=== PATIENT | male | born 1950 | race Caucasian/White ===

== ENCOUNTER 2016-06-25 10:46 | Emergency (ER) | payer BC, MEDICARE ==
[2016-06-25 13:13] VITALS: BP 121/67
--- NOTE | 2016-06-25 14:09 | UC ---
FLU HPI - HPI Summary HPI Summary: Pt presents with c/o of fatigue, cough, generalized malaise, chills and intermittent fever X 1 week. pt did not get flu vaccine this year. - History of Current Complaint Chief Complaint: UCRespiratory Stated Complaint: CONGESTION,SORE THROAT,COUGH Time Seen by Provider: 06/25/16 13:09 Hx Obtained From: Patient Onset/Duration: Gradual Onset, Lasting Days - 7 Severity Currently: Mild Severity Initially: Mild Related Hx: Possible Flu/Infectious Exposure - Allergy/Home Medications Allergies/Adverse Reactions: Allergies Allergy/AdvReac Type Severity Reaction Status Date / Time Azithromycin Allergy Mild cramping, Verified 06/25/16 13:13 rectal bleeding PMH/Surg Hx/FS Hx/Imm Hx Previously Healthy: Yes Endocrine History Of: Denies: Diabetes, Thyroid Disease Cardiovascular History Of: Reports: Cardiac Disorders - enlarged heart chamber Denies: Hypertension Respiratory History Of: Reports: COPD, Asthma GI/ History Of: Denies: Ulcer - Surgical History Surgical History: None - Family History Known Family History: Positive: Other - positive [facility] for URI - Social History Occupation: Retired Alcohol Use: None Substance Use Type: None Smoking Status (MU): Former Smoker Amount Used/How Often: 1 ppd Length of Time of Smoking/Using Tobacco: ~ 40 years When Did the Patient Quit Smoking/Using Tobacco: 2008 - Immunization History Most Recent Tetanus Shot: unknown Review of Systems Constitutional: Fever, Chills, Fatigue Skin: Negative Eyes: Negative ENT: Other - nasal congestion Respiratory: Cough Cardiovascular: Negative Gastrointestinal: Negative Genitourinary: Negative Motor: Negative Neurovascular: Negative Musculoskeletal: Myalgia Neurological: Negative Psychological: Negative All Other Systems Reviewed And Are Negative: Yes Physical Exam Triage Information Reviewed: Yes Appearance: Ill-Appearing Vital Signs: Initial Vital Signs Temp 98.8 F 06/25/16 13:04 Pulse 68 06/25/16 13:04 Resp 18 06/25/16 13:04 BP 121/67 06/25/16 13:04 Pulse Ox 99 06/25/16 13:04 Vital Signs Reviewed: Yes ENT Exam: Other ENT: Positive: Nasal congestion Neck exam: Normal Respiratory Exam: Normal Cardiovascular Exam: Normal Musculoskeletal Exam: Normal Neurological Exam: Normal Psychological Exam: Normal Skin Exam: Normal Flu Course/Dx - Differential Dx/Diagnosis Differential Diagnosis/HQI/PQRI: Influenza, Upper Respiratory Infection Provider Diagnoses: Influenza B Discharge - Discharge Plan Condition: Stable Disposition: HOME Prescriptions: Benzonatate CAP* [Tessalon 100 MG CAP*] 100 mg PO TID #15 cap Guaifenesin-Codeine [Codeine/Guaifenesin 100-10 mg/5Ml] 5 ml PO BEDTIME PRN #30 ml MDD 5 PRN Reason: Cough Guaifenesin-Codeine [Cheratussin AC 100-10 mg/5Ml] 5 ml PO QPM PRN #1 bottle MDD 5 PRN Reason: Cough Patient Education Materials: Influenza (ED) Referrals: Dashawn Rangel DO [Primary Care Provider] - Additional Instructions: You have tested positive for Influenza B. Please follow up with your PCP or return to clinic as needed.
== END 2016-06-25 14:19 | disposition home or self-care (01) ==
LOC: UCCORT 10:46
DX: J11.1 Influenza due to unidentified influenza virus with other respiratory manifestations (principal); Z88.1 Allergy status to other antibiotic agents; Z87.891 Personal history of nicotine dependence
CPT/HCPCS: 81003; 87502; 99212; G0463

== ENCOUNTER 2016-06-27 21:16 | Emergency (ER) | payer BC, MEDICARE ==
[2016-06-27 22:09] VITALS: BP 131/71
[2016-06-27] MEDS ORDERED: Albuterol 2.5 MG/3 ML NEB.SOL* (0.083%) INH ONE (22:26)
[2016-06-27] MEDS ORDERED: Levalbuterol 0.63MG/3ML NEB INH ONE (22:31)
--- NOTE | 2016-06-27 22:31 | UC ---
Respiratory Complaint HPI - HPI Summary HPI Summary: dx with the flu 2 days ago. Cough is still not well controlled, keeping him up at night. - History of Current Complaint Chief Complaint: UCRespiratory Stated Complaint: RECHECK COUGH/FLU Time Seen by Provider: 06/27/16 22:18 Hx Obtained From: Patient Onset/Duration: Sudden Onset, Lasting Days Timing: Constant Severity Initially: Moderate Severity Currently: Moderate Character: Cough: Nonproductive Aggravating Factors: Exertion, Deep Breaths, Recumbent Position Alleviating Factors: Nothing Associated Signs And Symptoms: Positive: Dyspnea, Wheezing - Allergies/Home Medications Allergies/Adverse Reactions: Allergies Allergy/AdvReac Type Severity Reaction Status Date / Time Azithromycin Allergy Mild cramping, Verified 06/27/16 22:03 rectal bleeding Home Medications: Home Medications Loratadine & Pseudoephedrine [Claritin-D 12 Hour 5-120 mg] 1 tab PRN 06/27/16 [ History] PMH/Surg Hx/FS Hx/Imm Hx Previously Healthy: Yes Endocrine History Of: Denies: Diabetes, Thyroid Disease Cardiovascular History Of: Reports: Cardiac Disorders - enlarged heart chamber Denies: Hypertension Respiratory History Of: Reports: COPD, Asthma GI/ History Of: Denies: Ulcer - Surgical History Surgical History: None - Family History Known Family History: Positive: Hypertension, Other - positive [facility] for URI - Social History Alcohol Use: None Substance Use Type: None Smoking Status (MU): Former Smoker Amount Used/How Often: 1 ppd Length of Time of Smoking/Using Tobacco: ~ 40 years When Did the Patient Quit Smoking/Using Tobacco: 2008 - Immunization History Most Recent Influenza Vaccination: NEVER-allergy Most Recent Tetanus Shot: unknown Most Recent Pneumonia Vaccination: N/A Review of Systems Constitutional: Negative, Fatigue Skin: Negative Eyes: Negative ENT: Negative Respiratory: Shortness Of Breath, Cough Cardiovascular: Negative Gastrointestinal: Negative Genitourinary: Negative Motor: Negative Neurovascular: Negative Musculoskeletal: Negative Neurological: Negative Psychological: Negative All Other Systems Reviewed And Are Negative: Yes Physical Exam Triage Information Reviewed: Yes Appearance: Well-Nourished, Ill-Appearing, Pain Distress Vital Signs: Initial Vital Signs Temp 96.6 F 06/27/16 22:05 Pulse 52 06/27/16 22:05 Resp 18 06/27/16 22:05 BP 131/71 06/27/16 22:05 Pulse Ox 98 06/27/16 22:05 Vital Signs Reviewed: Yes Eye Exam: Normal Eyes: Positive: Conjunctiva Clear ENT Exam: Normal ENT: Positive: Normal ENT inspection, Hearing grossly normal, Pharyngeal erythema, TM bulging Dental Exam: Normal Neck exam: Normal Neck: Positive: Supple, Nontender, No Lymphadenopathy Respiratory Exam: Normal Respiratory: Positive: Chest non-tender, Respiratory distress - mild, Rhonchi, Wheezing, Inspiration Cardiovascular Exam: Normal Cardiovascular: Positive: RRR, No Murmur, Pulses Normal Abdominal Exam: Normal Abdomen Description: Positive: Nontender, No Organomegaly, Soft Bowel Sounds: Positive: Present Musculoskeletal Exam: Normal Musculoskeletal: Positive: Strength Intact, ROM Intact, No Edema Neurological Exam: Normal Neurological: Positive: Alert, Muscle Tone Normal Psychological Exam: Normal Skin: Positive: Other - clammy UC Diagnostic Evaluation - Laboratory O2 Sat by Pulse Oximetry: 98 Respiratory Course/Dx - Course Course Of Treatment: hx obtained, exam performed, meds reviewed, levalbuterol given with good results, prednisone prescribed. - Differential Dx/Diagnosis Differential Diagnosis/HQI/PQRI: Aspiration, Asthma, Bronchitis, Influenza, Laryngitis, Sinusitis Provider Diagnoses: influenza. cough. wheezing Discharge - Discharge Plan Condition: Stable Disposition: HOME Prescriptions: predniSONE TAB* [Deltasone TAB*] 40 mg PO DAILY #14 tab Patient Education Materials: Bronchospasm (ED) Referrals: Dashawn Rangel DO [Primary Care Provider] -
== END 2016-06-27 23:02 | disposition home or self-care (01) ==
LOC: UCCORT 21:16
DX: J11.1 Influenza due to unidentified influenza virus with other respiratory manifestations (principal); R05 Cough; R06.2 Wheezing; Z88.1 Allergy status to other antibiotic agents; Z87.891 Personal history of nicotine dependence
CPT/HCPCS: 99212; A9270-GY; G0463

== ENCOUNTER 2018-06-16 12:09 | Emergency (ER) | payer MEDICARE, BC ==
[2018-06-16 13:52] VITALS: BP 155/75
--- NOTE | 2018-06-16 14:08 | UC ---
Respiratory Complaint HPI - HPI Summary HPI Summary: Pt presents with c/o cough, nasal congestion X 3 days. Pt denies fever or chills. Pt states that he "gets this every year at the same tie". Is concerned that he has a sinus infection. - History of Current Complaint Chief Complaint: UCGeneralIllness Stated Complaint: SINUS COMPLAINT,COUGH Time Seen by Provider: 06/16/18 13:38 Hx Obtained From: Patient Onset/Duration: Gradual Onset, Lasting Days, Still Present Timing: Intermittent Episodes Severity Initially: Mild Severity Currently: Moderate - at night Pain Intensity: 0 Character: Cough: Nonproductive Aggravating Factors: Allergens, Deep Breaths, Recumbent Position Alleviating Factors: Nothing Associated Signs And Symptoms: Positive: Wheezing, URI, Nasal Congestion Related History: Seasonal Allergies - Risk Factors Pulmonary Embolism Risk Factors: Negative Cardiac Risk Factors: Hypertension, CAD Pseudomonas Risk Factors: Chronic Lung Disease Tuberculosis Risk Factors: Negative - Allergies/Home Medications Allergies/Adverse Reactions: Allergies Allergy/AdvReac Type Severity Reaction Status Date / Time azithromycin Allergy GI Upset Verified 06/16/18 13:48 Home Medications: Home Medications Aspirin 81 mg PO DAILY 06/16/18 [History Confirmed 06/16/18] Guaifen/Phenyleph/Acetaminophn [Sinus Relief Sev Congest Cplt] 1 each PO ONCE [History Confirmed 06/16/18] PMH/Surg Hx/FS Hx/Imm Hx Previously Healthy: Yes Cardiovascular History: Cardiac Disease, Hypertension Respiratory History: COPD - Surgical History Surgical History: Yes Surgery Procedure, Year, and Place: TONSILLECTOMY - Family History Known Family History: Positive: Hypertension, Other - positive FM for URI - Social History Occupation: Retired Lives: With Family Alcohol Use: None Substance Use Type: None Smoking Status (MU): Former Smoker Amount Used/How Often: 1 ppd Length of Time of Smoking/Using Tobacco: ~ 40 years Have You Smoked in the Last Year: No When Did the Patient Quit Smoking/Using Tobacco: 2008 - Immunization History Most Recent Influenza Vaccination: NEVER-allergy Most Recent Tetanus Shot: unknown Most Recent Pneumonia Vaccination: N/A Vaccination Up to Date: Yes Review of Systems All Other Systems Reviewed And Are Negative: Yes Constitutional: Positive: Negative Skin: Positive: Negative Eyes: Positive: Negative ENT: Positive: Sinus Congestion Respiratory: Positive: Cough Cardiovascular: Positive: Negative Gastrointestinal: Positive: Negative Genitourinary: Positive: Negative Motor: Positive: Negative Neurovascular: Positive: Negative Musculoskeletal: Positive: Negative Neurological: Positive: Negative Psychological: Positive: Negative Is Patient Immunocompromised?: No Physical Exam Triage Information Reviewed: Yes Appearance: Well-Appearing Vital Signs: Initial Vital Signs Temp 98.0 F 06/16/18 13:46 Pulse 55 06/16/18 13:46 Resp 15 06/16/18 13:46 BP 155/75 06/16/18 13:46 Pulse Ox 98 06/16/18 13:46 Vital Signs Reviewed: Yes Eye Exam: Normal ENT: Positive: Nasal congestion, Other - white boggy nasal mucosa Dental Exam: Normal Neck exam: Normal Respiratory Exam: Normal Respiratory: Positive: Normal breath sounds Cardiovascular Exam: Normal Musculoskeletal Exam: Normal Neurological Exam: Normal Psychological Exam: Normal Skin Exam: Normal Respiratory Course/Dx - Differential Dx/Diagnosis Differential Diagnosis/HQI/PQRI: Asthma, Bronchitis, Exacerbation Of COPD Provider Diagnosis: Allergic rhinitis, Reactive airway disease Discharge - Sign-Out/Discharge Documenting (check all that apply): Patient Departure All imaging exams completed and their final reports reviewed: No Studies - Discharge Plan Condition: Stable Disposition: HOME Prescriptions: Benzonatate CAP* [Tessalon 100 MG CAP*] 200 mg PO Q8H PRN #30 cap PRN Reason: Cough Cetirizine* [ZyrTEC 10 MG TAB*] 10 mg PO DAILY #30 tab predniSONE TAB* [Deltasone 10 MG TAB*] 30 mg PO DAILY #12 tab Patient Education Materials: Reactive Airways Disease (ED) Referrals: Lamont Farnsworth MD [Primary Care Provider] - If Needed - Billing Disposition and Condition Condition: STABLE Disposition: Home
== END 2018-06-16 14:20 | disposition home or self-care (01) ==
LOC: UCCORT 12:09
DX: J44.9 Chronic obstructive pulmonary disease, unspecified (principal); I10 Essential (primary) hypertension; Z88.1 Allergy status to other antibiotic agents; Z79.82 Long term (current) use of aspirin; Z79.899 Other long term (current) drug therapy; Z87.891 Personal history of nicotine dependence
CPT/HCPCS: 99212; G0463